=== PATIENT | female | born 2000 | race African-American/Black ===

== ENCOUNTER 2022-03-20 14:20 | Emergency (ER) | payer OTHER ==
[2022-03-20 14:59] VITALS: BP 126/71; PULSE 95; TEMP 98.1; BMI 26.6
[2022-03-20] MEDS ORDERED: IBUPROFEN 600 MG TABLET (FP) PO ONE ×2 (15:39→15:42)
== END 2022-03-20 16:40 | disposition home or self-care (01) ==
LOC: JERFT 14:20
DX: S20.212A Contusion of left front wall of thorax, initial encounter (principal); W22.09XA Striking against other stationary object, initial encounter; Y93.83 Activity, rough housing and horseplay
CPT/HCPCS: 71101-TC-LT-FY; 99283-25

== ENCOUNTER 2022-04-05 05:16 | Emergency (ER) | payer OTHER ==
[2022-04-05 05:35] VITALS: BP 122/69; PULSE 71; TEMP 98; BMI 26.6
[2022-04-05] MEDS ORDERED: AMOX TR/POT CLAV 875MG/125MG TABLETS (FP) PO ONE (05:45)
[2022-04-05] MEDS ORDERED: AMOX TR/POT CLAV 875MG/125MG TABLETS (FP) ONE (05:52)
== END 2022-04-05 05:58 | disposition home or self-care (01) ==
LOC: JER 05:16
PROC: 0JQ10ZZ Repair Face Subcutaneous Tissue and Fascia, Open Approach (ICD-10-PCS; principal; 2022-04-05)
DX: S01.111A Laceration without foreign body of right eyelid and periocular area, initial encounter (principal)
CPT/HCPCS: 12011-25; 99284-25

== ENCOUNTER 2023-04-13 14:17 | Emergency (ER) | payer OTHER ==
[2023-04-13 14:24] VITALS: BP 133/75; RESP 18; TEMP 97.6; BMI 27.3
[2023-04-13] MEDS ORDERED: ONDANSETRON 4 MG/2 ML VIAL IVPB ONE (16:29)
[2023-04-13] MEDS ORDERED: FAMOTIDINE 20 MG/50 ML IVPB 20 MG/50 ML MG IVPB ONE ×2 (16:29→16:41)
[2023-04-13] MEDS ORDERED: SODIUM CHLORIDE 0.9% 500 ML INFUS.BAG IV ONE (16:29)
[2023-04-13] MEDS ORDERED: ACETAMINOPHEN 1000 MG/100 ML BAG IVPB ONE (16:29)
[2023-04-13] MEDS ORDERED: ONDANSETRON 4 MG/2 ML VIAL ONE (16:41)
[2023-04-13] MEDS ORDERED: ACETAMINOPHEN INJECTION 100 ML IVPB ONE (16:41)
[2023-04-13] MEDS ORDERED: LIDOCAINE 5% TOPICAL PATCH ONE (16:42)
[2023-04-13] MEDS ORDERED: MAG HYDROX/AL HYDROX/SIMETH 30 ML UNIT-DOSE CUP PO ONE (18:05)
[2023-04-13 18:06] LABS: BASO % 0.3 % (0-2.0); EOS % 9.6 % (0-4.5); HEMATOCRIT 38.1 % (32.4-45.2); HEMOGLOBIN 12.3 GM/dL (10.7-15.3); LYMPH % 34.9 % (8-40); MCH 28.6 pg (25.7-33.7); MCHC 32.2 g/dl (32.0-36.0); MEAN CELL VOLUME 88.9 fl (80-96); MEAN PLT VOLUME 8.7 fl (7.5-11.1); MONO % 9.9 % (3.8-10.2); NEUT % 45.3 % (42.8-82.8); PLATELET COUNT 300 10^3/uL (134-434); RBC 4.29 M/mm3 (3.60-5.2); WHITE BLOOD COUNT 5.5 K/mm3 (4.0-10.0)
[2023-04-13 18:26] VITALS: PULSE 68
[2023-04-13 18:27] LABS: POTASSIUM 4.8 mmol/L (3.5-5.1)
[2023-04-13 18:30] LABS: ALBUMIN 3.7 g/dl (3.4-5.0); BLOOD UREA NITROGEN 10.2 mg/dL (7-18); CALCIUM 9.5 mg/dL (8.5-10.1); MAGNESIUM 2.2 mg/dL (1.8-2.4)
[2023-04-13 18:33] LABS: CREATININE 0.8 mg/dL (0.55-1.3)
[2023-04-13 18:34] LABS: TOT PROT 7.2 g/dl (6.4-8.2)
[2023-04-13 18:35] LABS: BILIRUBIN,TOTAL 0.5 mg/dL (0.2-1)
== END 2023-04-13 18:51 | disposition home or self-care (01) ==
LOC: JER 14:17
PROC: 3E033GC Introduction of Other Therapeutic Substance into Peripheral Vein, Percutaneous Approach (ICD-10-PCS; principal; 2023-04-13)
PROC: 3E033NZ Introduction of Analgesics, Hypnotics, Sedatives into Peripheral Vein, Percutaneous Approach (ICD-10-PCS; 2023-04-13)
PROC: 3E033GC Introduction of Other Therapeutic Substance into Peripheral Vein, Percutaneous Approach (ICD-10-PCS; 2023-04-13)
DX: R10.13 Epigastric pain (principal); R07.0 Pain in throat; R11.0 Nausea; R19.7 Diarrhea, unspecified; K29.00 Acute gastritis without bleeding
CPT/HCPCS: 36415; 80053; 83690; 83735; 84703; 85025; 99284-25